=== PATIENT | female | born 1940 | race Caucasian/White ===

== ENCOUNTER → 2021-01-26 | Outpatient (CLI) | payer MEDICARE, OTHER ==
[~2021-01-26] MED LIST: DIFLUCAN150 MG PO; KEFLEX CAP 500500 MG PO; MYCOSTATIN POWD15 GM TOP; NORCO 5-325 TA1 EACH PO
== END ==
LOC: KOH-I 09:33
DX: R06.02 Shortness of breath (principal)
CPT/HCPCS: 71046

== ENCOUNTER 2021-01-30 10:54 | Emergency (ER) | payer MEDICARE, OTHER ==
[2021-01-30 12:24] LABS: HEMOGLOBIN 15.3 gm/dl (12.3-15.3); RED BLOOD COUNT 4.47 M/UL (4.00-5.10); WHITE BLOOD COUNT 8.5 K/UL (4.5-11.0)
[2021-01-30 13:16] LABS: BUN/CREATININE RATIO 16 (0-10)
== END 2021-01-30 15:21 | disposition home or self-care (01) ==
LOC: ER1 10:54
PROVIDERS: Physician Assistant Medical
DX: R60.0 Localized edema (principal); R79.1 Abnormal coagulation profile; J44.9 Chronic obstructive pulmonary disease, unspecified; I11.0 Hypertensive heart disease with heart failure; I50.9 Heart failure, unspecified; E78.5 Hyperlipidemia, unspecified; Z90.710 Acquired absence of both cervix and uterus; Z88.5 Allergy status to narcotic agent
CPT/HCPCS: 71045; 80053; 82550; 82553; 83874; 84484; 85025; 93005; 93970; 99284; Q9967

== ENCOUNTER → 2021-04-14 | Outpatient (CLI) | payer MEDICARE, OTHER ==
[~2021-04-14] MED LIST changes: +ALBUTEROL2.5 MG/3 M INH; +ALDACTONE 25MG25 MG PO; +BUDESONIDE0.5 MG/2 M INH; +BUPROPION XL150 MG PO; +DULERA 100 MCG8.8 GM INH; +DYMISTA NASAL S23 GM; +FEXOFENADINE H180 MG PO; +FORMOTEROL20 MCG/2 M HHN; +HYDRALAZINE HCL50 MG PO; +INDERAL TAB 2020 MG PO; +LASIX40 MG PO; +MUCINEX600 MG PO; +OMEPRAZOLE20 MG PO; +PRIMIDONE50 MG PO; +REVATIO 20 MG T20 MG PO; +SYNTHROID50 MCG PO; +XANAX 0.25 MG0.25 MG PO
== END ==
LOC: KOH-I 10:38
DX: J20.6 Acute bronchitis due to rhinovirus (principal); J30.2 Other seasonal allergic rhinitis; J43.9 Emphysema, unspecified
CPT/HCPCS: 71046

== ENCOUNTER 2021-05-18 18:59 | Inpatient (IN) | payer MEDICARE, OTHER ==
[~2021-05-18] VITALS: Ht 157.5 cm; Wt 125.6 kg
[~2021-05-18 18:59] MED LIST changes: -ALBUTEROL2.5 MG/3 M INH; -ALDACTONE 25MG25 MG PO; -BUDESONIDE0.5 MG/2 M INH; -BUPROPION XL150 MG PO; -DULERA 100 MCG8.8 GM INH; -DYMISTA NASAL S23 GM; -FEXOFENADINE H180 MG PO; -FORMOTEROL20 MCG/2 M HHN; -HYDRALAZINE HCL50 MG PO; -INDERAL TAB 2020 MG PO; -LASIX40 MG PO; -MUCINEX600 MG PO; -OMEPRAZOLE20 MG PO; -PRIMIDONE50 MG PO; -REVATIO 20 MG T20 MG PO; -SYNTHROID50 MCG PO; -XANAX 0.25 MG0.25 MG PO
[2021-05-18 19:23] LABS: HEMOGLOBIN 15.7 gm/dl (12.3-15.3); RED BLOOD COUNT 4.85 M/UL (4.00-5.10); WHITE BLOOD COUNT 12.7 K/UL (4.5-11.0)
[2021-05-19] MEDS ORDERED: INDERAL TAB 2020 MG PO (05:01)
[2021-05-19] MEDS ORDERED: DULERA 100 MCG8.8 GM INH (05:01)
[2021-05-19] MEDS ORDERED: ALBUTEROL2.5 MG/3 M INH (05:02)
[2021-05-19] MEDS ORDERED: ALDACTONE 25MG25 MG PO (05:03)
[2021-05-19] MEDS ORDERED: LASIX40 MG PO (05:05)
[2021-05-19 08:06] LABS: HEMOGLOBIN 14.9 gm/dl (12.3-15.3); RED BLOOD COUNT 4.7 M/UL (4.00-5.10); WHITE BLOOD COUNT 10.7 K/UL (4.5-11.0)
--- NOTE | 2021-05-19 14:27 | NUR ---
1030 PTS DGT IN LAW CALLED ABOUT PTS CONDITION, SHE TOLD STAFF THAT SHE WAS PTS DGT AND THAT SHE WAS POWER OF MANAGER RN CASE OVER PT, DGT IN LAW VERY DISRESPECTFUL OF NURSE, STAFF, AND FACILITY. DGT IN LAW ASKED TO BRING COPY OF POA PAPERS 1415 SON AND DGT IN LAW HERE, DR FALCON AND PARISA (DISTRICT [employer] CHIEF) TALKING WITH FAMILY IN DETAIL ABOUT PTS STATUS
[2021-05-19] MEDS ORDERED: BUDESONIDE0.5 MG/2 M INH (19:17)
[2021-05-19] MEDS ORDERED: BUPROPION XL150 MG PO (19:18)
[2021-05-19] MEDS ORDERED: FEXOFENADINE H180 MG PO (19:19)
[2021-05-19] MEDS ORDERED: DYMISTA NASAL S23 GM (19:19)
[2021-05-19] MEDS ORDERED: HYDRALAZINE HCL50 MG PO (19:20)
[2021-05-19] MEDS ORDERED: FORMOTEROL20 MCG/2 M HHN (19:20)
[2021-05-19] MEDS ORDERED: OMEPRAZOLE20 MG PO (19:21)
[2021-05-19] MEDS ORDERED: MUCINEX600 MG PO (19:21)
[2021-05-19] MEDS ORDERED: SYNTHROID50 MCG PO (19:21)
[2021-05-19] MEDS ORDERED: REVATIO 20 MG T20 MG PO (19:22)
[2021-05-19] MEDS ORDERED: PRIMIDONE50 MG PO (19:22)
[2021-05-19] MEDS ORDERED: XANAX 0.25 MG0.25 MG PO (19:23)
[2021-05-20 05:59] LABS: HEMOGLOBIN 14.9 gm/dl (12.3-15.3); RED BLOOD COUNT 4.67 M/UL (4.00-5.10); WHITE BLOOD COUNT 12.2 K/UL (4.5-11.0)
--- NOTE | 2021-05-20 09:44 | NUR ---
PT IS ALERT AND ORIENTED X3, PT HAS CONSENTED TO CENTRAL LINE PLACEMENT. TWO NURSES IN THE ROOM TO VERIFY. NURSE 1- KENDRA STEPHENS NURSE 2- RADHA THAYER
[2021-05-21 06:41] LABS: HEMOGLOBIN 14.1 gm/dl (12.3-15.3); RED BLOOD COUNT 4.39 M/UL (4.00-5.10); WHITE BLOOD COUNT 11.2 K/UL (4.5-11.0)
[2021-05-21 06:47] LABS: BUN/CREATININE RATIO 30 (0-10)
[2021-05-22 05:28] LABS: RED BLOOD COUNT 4.28 M/UL (4.00-5.10); WHITE BLOOD COUNT 13.4 K/UL (4.5-11.0)
[2021-05-23 11:46] LABS: BUN/CREATININE RATIO 27 (0-10)
--- NOTE | 2021-05-23 11:46 | NUR ---
1000 WHILE PASSING PTS MEDS, TECH IN ROOM EXPLAINING TO PT THAT HER DAUGHTER IN LAW IS CALLING REQUESTING INFORMATION ABOUT PT, PT "STATED THAT SHE DIDNT WANT DIL TO KNOW ANYTHING THAT SHE WAS AFRAID OF DIL" PT REPEATED TWICE THAT SHE WAS AFRAID OF DIL,INFORMED PT THAT HER PHONE IS ON BEDSIDE TABLE AND IN REACH OF PT WHEN DIL CALLS,PT STATED THAT SHE DIDNT WANT TO TALK TO DIL
[2021-05-24 02:43] LABS: HEMOGLOBIN 12.2 gm/dl (12.3-15.3); WHITE BLOOD COUNT 11.9 K/UL (4.5-11.0)
[2021-05-24 02:45] LABS: RED BLOOD COUNT 3.84 M/UL (4.00-5.10)
[2021-05-24 02:56] LABS: BUN/CREATININE RATIO 26 (0-10)
[2021-05-24 15:50] LABS: HEMOGLOBIN 8.9 gm/dl (12.3-15.3); RED BLOOD COUNT 2.84 M/UL (4.00-5.10); WHITE BLOOD COUNT 24.5 K/UL (4.5-11.0)
--- NOTE | 2021-05-24 17:05 | NUR ---
05/24/21 1435 RECEIVED FROM PCU 100% BIPAP UNRESPONSIVE. HR 93 RR 16 (BAGGED AT THIS TIME.BP 117/74 POX UNABLE TO READ, EXTREMITIES COLD AND NOT PICKING UP WELL ON HEAD, EAR OR NOSE. INTUBATED BY DR ONEILL AT 1441 7.5 ETT 22 AT LIPLINE.VENT AT AC 20 TV 500 PEEP 14 FIO2 100% LEVOPHED AT 30 CONT VIA RIGHT IJ TLC VASOPRESSIN UP AT 1.8 UNIT/HR AND PHENYLEPHRINE AT 300 MCG/MIN. DR ONEILL CALLED FAMILT AND FAMILY MADE PT DNR AT THIS POINT. FC WITH CHIDI URINE. OGT PLACED.
--- NOTE | 2021-05-24 18:13 | NUR ---
1230 PT BEGIN PULLING OFF AIRVO AND REFUSED TO LEAVE TO ON STATED SHE WANTED TO . AIRVO WAS PLACED BACK ON THE PT. PT REMOVED AIRVO AGAIN BIPAP WAS PLACED DUE TO AIRVO BEING UNABLE TO BRING 02 BACK UP. PT THEN BROKE BIPAP MASK 02 DROPPED INTO THE 70'S BEFORE WE COULD GET BIPAP BACK ON THE PT BP ALSO DROPPED MD WAS NOTIFYED@ 1300 LEVOPHED WAS STARTED AND MAXED ON 30 BEFORE PT WAS TRANSFERED TO ICU.
--- NOTE | 2021-05-24 18:34 | NUR ---
05/24/21 1642 FAMILY NOTIFIED OF PATIENT CONDITION AND COULD COME SEE PATIENT. TIM STATED HE WOULD BE HERE
--- NOTE | 2021-05-24 18:40 | NUR ---
05/24/21 5259 FAMILY NOTIFIED OF PATIENT
--- NOTE | 2021-05-24 19:03 | NUR ---
05/24/21 190 POST MORTEM BATH AND CARE GIVEN, SWAN, ETT, OGT AND CENTRAL LINE REMOVED. FAMILY NOFITIED
== END 2021-05-24 18:25 | disposition expired | DRG 208 ==
LOC: ER1 18:59 → CDU 21:39 → CCU 21:39 → PROG CARE 05-22 15:40 → CCU 05-24 14:45
PROVIDERS: Family Medicine; Internal Medicine; Internal Medicine Pulmonary Disease; Surgery; ADMIT Internal Medicine
PROC: 3E033XZ Introduction of Vasopressor into Peripheral Vein, Percutaneous Approach (ICD-10-PCS; 2021-05-18)
PROC: XW033E5 Introduction of Remdesivir Anti-infective into Peripheral Vein, Percutaneous Approach, New Technology Group 5 (ICD-10-PCS; 2021-05-18)
PROC: 3E0333Z Introduction of Anti-inflammatory into Peripheral Vein, Percutaneous Approach (ICD-10-PCS; 2021-05-18)
PROC: 8E0ZXY6 Isolation (ICD-10-PCS; 2021-05-18)
PROC: 5A09457 Assistance with Respiratory Ventilation, 24-96 Consecutive Hours, Continuous Positive Airway Pressure (ICD-10-PCS; 2021-05-18)
PROC: 02HV33Z Insertion of Infusion Device into Superior Vena Cava, Percutaneous Approach (ICD-10-PCS; 2021-05-20)
PROC: B548ZZA Ultrasonography of Superior Vena Cava, Guidance (ICD-10-PCS; 2021-05-20)
PROC: 5A1935Z Respiratory Ventilation, Less than 24 Consecutive Hours (ICD-10-PCS; principal; 2021-05-24)
PROC: 0BH17EZ Insertion of Endotracheal Airway into Trachea, Via Natural or Artificial Opening (ICD-10-PCS; 2021-05-24)
DX: U07.1 COVID-19 (principal); J12.82 Pneumonia due to coronavirus disease 2019; A41.9 Sepsis, unspecified organism; R65.21 Severe sepsis with septic shock; J80 Acute respiratory distress syndrome; J15.9 Unspecified bacterial pneumonia; Z68.43 Body mass index [BMI] 50.0-59.9, adult; J43.9 Emphysema, unspecified; I11.0 Hypertensive heart disease with heart failure; I50.9 Heart failure, unspecified; E66.01 Morbid (severe) obesity due to excess calories; F32.9 Major depressive disorder, single episode, unspecified; F41.9 Anxiety disorder, unspecified; E03.9 Hypothyroidism, unspecified; Z87.891 Personal history of nicotine dependence; Z90.710 Acquired absence of both cervix and uterus; Z86.711 Personal history of pulmonary embolism; Z79.01 Long term (current) use of anticoagulants; Z74.01 Bed confinement status
CPT/HCPCS: 31500; 36415; 36600; 71045; 80048; 80053; 81001; 82550; 82553; 82803; 82962; 83605; 83880; 84484; 85007; 85025; 85027; 85379; 85610; 86140; 87040; 87086; 92526; 92610; 93005; 93970; 94002; 94640; 94660; 94664; 94760; 96374; 96375; 99285; C1751; J0456; J0696; J1100; J1650; J1720; J1940; J2060; J2185; J2250; J2270; J2370; J2543; J3370; J7030; J7050; J7070; Q9967; U0002